=== PATIENT | female | born 1955 | race Two or more races ===

== ENCOUNTER 2018-08-07 14:39 | Emergency (ER) | payer OTHER ==
[~2018-08-07] VITALS: Ht 167.6 cm; Wt 99.8 kg
[2018-08-07 15:49] VITALS: BP 176/106
[2018-08-07] MEDS ORDERED: KETOROLAC TROMETH 60MG/2ML VIAL IM ONE (17:00)
[2018-08-07] MEDS ORDERED: BACITRACIN TOP OINT 1 UD PKG TOP ONE (18:15)
== END 2018-08-07 18:14 | disposition home or self-care (01) ==
LOC: ER 14:45
DX: S13.4XXA Sprain of ligaments of cervical spine, initial encounter (principal); S50.11XA Contusion of right forearm, initial encounter; I10 Essential (primary) hypertension; V49.59XA Passenger injured in collision with other motor vehicles in traffic accident, initial encounter; Y93.89 Activity, other specified; Y99.8 Other external cause status; Y92.488 Other paved roadways as the place of occurrence of the external cause
CPT/HCPCS: 72125; 73090; 96372; 99284; J1885